=== PATIENT | male | born 1955 ===

== ENCOUNTER 2024-01-14 10:18 | Outpatient (AMB) | payer MEDICARE, SELFPAY ==
--- NOTE | 2024-01-14 10:32 | MHC.OFFVIS ---
Vital Signs 01/14/24 10:40 Height 5 ft 6 in Weight 190 lb 2 oz BMI 30.7 BP 157/87 H Blood Pressure Location Lt brachial Position Sitting Pulse 68 Intake Visit Reasons: Right inguinal hernia Intake Note: Patient is seen in office for evaluation and treatment of a right inguinal hernia. Pt c/o: onset one year, has increase in size, painful when coughing or sneezing, denies any other concerns Vegetable Loader Required: No Accompanied by: Self / Same As Patient Allergies acetaminophen [From Tylox] Allergy (Mild, Verified 01/14/24 10:38) Dizziness oxycodone [From Tylox] Allergy (Mild, Verified 01/14/24 10:38) Dizziness Medication List - Last Reconciled 01/14/24 by Thor Marin MD omeprazole 20 mg PO DAILY HPI Comments Details: 68-year-old male patient presenting for evaluation of a right groin lump. He initially noted the lump 1 year ago but more recently after doing some heavy lifting around the house noted increased swelling and pain. The lump is now present most of the time and he needs to wear hernia truss to keep it reduced. He has a prior tobacco history (35 pack-year history) but quit in 2006. He was noted on a recent physical examination to have a right inguinal hernia and presents today to discuss a repair. He denies nausea, vomiting, fever or chills. His bowels have been normal without bleeding or constipation. He denies a previous history of hernias or hernia surgeries. [facility] Surgical History History of esophagogastroduodenoscopy (EGD) (2005) Hx of arthroscopy of right knee (2009) Hx of cystoscopy (2023) Hx of colonoscopy Social History Alcohol intake: current Alcohol intake frequency: holidays/special occasions only Patient Tobacco Use Status: Former Tobacco user Review of Systems Const All systems reviewed & are unremarkable except as noted in HPI and below Denies chills, Denies fever(s), Denies headache(s), Denies poor appetite and Denies weakness ENT Denies headache(s) Card Denies chest pain, Denies irregular heart rhythm, Denies palpitations and Denies dyspnea Resp Denies cough, Denies excessive phlegm production and Denies dyspnea GI Reports abdominal pain, Denies bloating, Denies change in bowel habits, Denies constipation, Denies heartburn, Denies diarrhea, Denies nausea and Denies vomiting Denies difficulty urinating and Denies urinary frequency Musc Denies back pain, Denies muscle weakness and Denies numbness Skin/Breast Denies changing lesions and Denies unusual bruising Neuro Denies headache(s), Denies numbness, Denies paresthesias and Denies weakness Psych Denies anxiety and Denies depression Endo Denies palpitations [place]/Lymph Denies lymphadenopathy Physical Exam Vital Signs: Last Vital Signs Pulse 68 01/14/24 10:40 BP 157/87 H 01/14/24 10:40 BMI result Body Mass Index 30.7 Const General: cooperative and no acute distress Nutritional Appearance: well nourished Orientation/consciousness: patient oriented x3 Limitations: no limitations HEENT Head: Yes normocephalic and Yes atraumatic Ears: hearing grossly normal bilaterally Resp Effort & Inspection: normal respiratory effort, no audible wheezes, no cough and no respiratory distress Cardio Jugular venous distension: no JVD GI Other: Moderate size right inguinal hernia which increases with Valsalva maneuvers but reduces with light pressure. No hernia noted on the left side. Inspection: Yes normal to inspection Palpation (GI): Soft to palpation, nontender, no guarding and not rigid Skin Other: Warm, dry, no rash Neuro General: patient oriented x3 Extrem General: Yes no clubbing, cyanosis or edema Assessment & Plan Assessment & Plan (1) Reducible right inguinal hernia: Code(s): K40.90 - Unilateral inguinal hernia, without obstruction or gangrene, not specified as recurrent Category: Medical Plan 68-year-old male patient presenting with a palpable lump in the right groin which has increased in size and symptoms over the past year. On examination he does indeed have a reducible right inguinal hernia which increases in size with Valsalva maneuvers. No left inguinal hernias identified. We discussed repair of this right inguinal hernia including the risks, benefits and alternatives. He consents to repair of the right inguinal hernia with mesh and will be scheduled as a short-stay surgery at his earliest convenience. Coding Level of Care Code New Pt Level 4 (90329) Diagnoses Reducible right inguinal hernia K40.90
[2024-01-14 10:40] VITALS: BP 157/87; PULSE 68; BMI 30.7
== END 2024-01-14 12:06 | disposition home or self-care (01) ==
PROVIDERS: PCP Physician Assistant Medical; Visit Provider Surgery
DX: K40.90 Unilateral inguinal hernia, without obstruction or gangrene, not specified as recurrent (principal)
CPT/HCPCS: 99204

== ENCOUNTER → 2024-01-14 10:18 | Outpatient (BNVA) | payer MEDICARE, SELFPAY | PROVIDERS: PCP Physician Assistant Medical; Visit Provider Surgery | DX: K40.90 Unilateral inguinal hernia, without obstruction or gangrene, not specified as recurrent (principal) | CPT/HCPCS: 99202 ==

== ENCOUNTER → 2024-01-22 13:59 | Outpatient (BNV) | payer MEDICARE, SELFPAY | PROVIDERS: PCP Physician Assistant Medical; Visit Provider Internal Medicine | DX: R00.1 Bradycardia, unspecified (principal) | CPT/HCPCS: 93010 ==

== ENCOUNTER 2024-01-26 12:33 | Outpatient (AMB) | payer MEDICARE, SELFPAY ==
--- NOTE | 2024-01-26 12:44 | A.OFFVIS_ITS ---
Intake Visit Reasons: poss fungul infection groin Intake Note: This patient presents for question possible fungal infection of the groin. Patient c/o; reports he is on Amoxicillin for his tooth and his does not know if this rash is a reaction to the abx. 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 He was advised to return to the office at his PAT appointment yesterday. [facility] Medical History Arthritis Back pain Nocturia Asthma GERD (gastroesophageal reflux disease) Hypertrophy of prostate without urinary obstruction Osteoarthritis History of tobacco use Impaired fasting glucose Elevated blood pressure reading Surgical History History of vasectomy History of esophagogastroduodenoscopy (EGD) (2005) Hx of arthroscopy of right knee (2009) Hx of cystoscopy (2023) Hx of colonoscopy Social History Are you a primary child care to a significant other at home: No Do you presently have visiting nurse or other home services: No Alcohol intake: current Alcohol intake frequency: holidays/special occasions only Patient Tobacco Use Status: Former Tobacco user Physical Exam Const General: healthy appearing GI Other: Soft, nondistended, nontender, palpable right inguinal hernia. No rash identified at this time. Skin Other: Warm, dry, no rash Assessment & Plan Assessment & Plan (1) Reducible right inguinal hernia: Code(s): K40.90 - Unilateral inguinal hernia, without obstruction or gangrene, not specified as recurrent Category: Medical Plan Asked to see patient regarding a rash in the groin for which he is using an antifungal cream. Examination today reveals no rash. He may proceed with surge ry as scheduled. Coding Level of Care Code Est Pt Level 3 (91485) Diagnoses Reducible right inguinal hernia K40.90
== END 2024-01-26 12:58 | disposition home or self-care (01) ==
PROVIDERS: PCP Physician Assistant Medical; Visit Provider Surgery
DX: K40.90 Unilateral inguinal hernia, without obstruction or gangrene, not specified as recurrent (principal)
CPT/HCPCS: 99024

== ENCOUNTER → 2024-01-26 12:33 | Outpatient (BNVA) | payer MEDICARE, SELFPAY | PROVIDERS: PCP Physician Assistant Medical; Visit Provider Surgery | DX: K40.90 Unilateral inguinal hernia, without obstruction or gangrene, not specified as recurrent (principal); B35.6 Tinea cruris | CPT/HCPCS: 99212 ==

== ENCOUNTER 2024-01-27 08:24 | Day surgery (SDC) | payer MEDICARE, SELFPAY ==
--- NOTE | 2024-01-22 | ECG_ITS ---
Test Reason : preop Blood Pressure : / mmHG Vent. Rate : 051 BPM Atrial Rate : 051 BPM P-R Int : 148 ms QRS Dur : 084 ms QT Int : 436 ms P-R-T Axes : -09 045 028 degrees QTc Int : 401 ms Sinus bradycardia Otherwise normal ECG No previous ECGs available Referred By: Yolanda Silverman Electronically Signed By:HILDA CORONA
[2024-01-22 13:17] VITALS: BP 180/91; PULSE 63; RESP 16; O2SAT 97; BMI 30.5
--- NOTE | 2024-01-22 13:37 | HO.ANESPROP2 ---
Documented by User: Yolanda Silverman NP 01/25/24 13:09 HPI - Anesthesia Eval Consult details Narrative: 68yo M for?Right Hernia Inguinal Reducible with mesh Bilateral groin fungal infection. Treating with OTC fungal cream. Dr Soto alerted. Wants to see in office preop. Jovan RN notifiied of need for preop appointment with Dr Fairchild No recent illness No CP/SOB with yard work, golf regularly BP up at PAT. Readings at Gen Surg lower and PCP 11/2023 WNL. Reports increased anxiety r/t to surgery. Will monitor at home and bring log DOS GERD: controlled with ppi Asthma: dx'd years ago, no rescue inhaler needed for many years PMFSH Active Problems Active Problems: All Active Problems Reducible right inguinal hernia (Acute) Past Medical History Medical History Arthritis Back pain Nocturia Asthma GERD (gastroesophageal reflux disease) Hypertrophy of prostate without urinary obstruction Osteoarthritis History of tobacco use Impaired fasting glucose Elevated blood pressure reading Family History Family history of problems with anesthesia: No Surgical History Surgical History History of vasectomy History of esophagogastroduodenoscopy (EGD) (2005) Hx of arthroscopy of right knee (2009) Hx of cystoscopy (2023) Hx of colonoscopy History of Problems with Anesthesia: No Social History Social History Are you a primary manager intensive care unit to a significant other at home: No Do you presently have visiting nurse or other home services: No Alcohol intake: current Alcohol intake frequency: holidays/special occasions only Patient Tobacco Use Status: Former Tobacco user Use of substances other than those prescribed or required for medical reasons: Yes Substance Use Frequency: Monthly Have you been hit, kicked, punched, or otherwise hurt by someone within the past year? If so, by whom?: No Are you DNR?: No Advance Directives: No Advance Directives Information Provided: Yes Advance Directives on File: No Recently lost weight without trying: No Eating poorly because of decreased appetite: No Nutrition Risks: No Nutritional Risk Poor oral hygiene: Yes (crowns, permanent bridge. pt needs a root canal) Meds Allergies Allergy/AdvReac Type Severity Reaction Status Date / Time acetaminophen [From Tylox] Allergy Mild Dizziness Verified 01/26/24 12:53 oxycodone [From Tylox] Allergy Mild Dizziness Verified 01/26/24 12:53 Home Medications ?Medication ?Instructions ?Recorded ?Confirmed ?Last Taken ?Type omeprazole 20 mg capsule,delayed 20 mg PO DAILY 01/14/24 01/21/24 01/27/24 History release melatonin 3 mg tablet 3 mg PO BEDTIME PRN Insomnia 01/21/24 01/21/24 Unknown History turmeric 400 mg capsule 400 mg PO DAILY 01/21/24 01/22/24 Unknown History diclofenac sodium 1 % topical gel 2 g topical QID PRN Pain 01/22/24 01/22/24 Unknown History (Voltaren Arthritis Pain) milk thistle seed extract 200 mg 200 mg PO DAILY 01/22/24 01/22/24 Unknown History capsule tyrosine 1 ea PO DAILY 01/22/24 01/22/24 Unknown History vit C-Tp-Rp-Cn-wunepk-lqo palm 2 cap PO DAILY 01/22/24 01/22/24 Unknown History capsule zinc 01/22/24 01/22/24 Unknown History amoxicillin 875 mg tablet 875 mg PO BID 01/26/24 Unknown History Exam Height,Weight and Vital Signs: Height 5 ft 6 in Weight 85.729 kg Last Vital Signs Pulse 63 01/22/24 13:17 Resp 16 01/22/24 13:17 BP 180/91 H 01/22/24 13:17 Pulse Ox 97 01/22/24 13:17 O2 Del Method Room Air 01/22/24 13:17 Airway Mallampati Class: III TM Dist: >3cm Neck ROM: Full Loose/Missing/Broken Teeth: No (Right lower permanent, crowns molars,) Heart: RRR Lungs: CTAB Assessment and Plan Assessment Anesthesia Assessment: Anesthesia Plan Discussed and PAT Visit Final Anesthetic Review Family History of Problems with Anesthesia: No History of Problems with Anesthesia: No Documented by User: Robert Wylie MD 01/27/24 10:06 [facility] Past Medical History Medical History Arthritis Back pain Nocturia Asthma GERD (gastroesophageal reflux disease) Hypertrophy of prostate without urinary obstruction Osteoarthritis History of tobacco use Impaired fasting glucose Elevated blood pressure reading Surgical History Surgical History History of vasectomy History of esophagogastroduodenoscopy (EGD) (2005) Hx of arthroscopy of right knee (2009) Hx of cystoscopy (2023) Hx of colonoscopy Social History Social History Are you a primary manager intensive care unit to a significant other at home: No Do you presently have visiting nurse or other home services: No Alcohol intake: current Alcohol intake frequency: holidays/special occasions only Patient Tobacco Use Status: Former Tobacco user Use of substances other than those prescribed or required for medical reasons: Yes Substance Use Frequency: Monthly Have you been hit, kicked, punched, or otherwise hurt by someone within the past year? If so, by whom?: No Are you DNR?: No Advance Directives: No Advance Directives Information Provided: Yes Advance Directives on File: No Recently lost weight without trying: No Eating poorly because of decreased appetite: No Nutrition Risks: No Nutritional Risk Poor oral hygiene: Yes (crowns, permanent bridge. pt needs a root canal) Meds Allergies Allergy/AdvReac Type Severity Reaction Status Date / Time acetaminophen [From Tylox] Allergy Mild Dizziness Verified 01/26/24 12:53 oxycodone [From Tylox] Allergy Mild Dizziness Verified 01/26/24 12:53 Home Medications ?Medication ?Instructions ?Recorded ?Confirmed ?Last Taken ?Type omeprazole 20 mg capsule,delayed 20 mg PO DAILY 01/14/24 01/21/24 01/27/24 History release melatonin 3 mg tablet 3 mg PO BEDTIME PRN Insomnia 01/21/24 01/21/24 Unknown History turmeric 400 mg capsule 400 mg PO DAILY 01/21/24 01/22/24 Unknown History diclofenac sodium 1 % topical gel 2 g topical QID PRN Pain 01/22/24 01/22/24 Unknown History (Voltaren Arthritis Pain) milk thistle seed extract 200 mg 200 mg PO DAILY 01/22/24 01/22/24 Unknown History capsule tyrosine 1 ea PO DAILY 01/22/24 01/22/24 Unknown History vit K-Nv-Zo-Lu-fojdpm-iug palm 2 cap PO DAILY 01/22/24 01/22/24 Unknown History capsule zinc 01/22/24 01/22/24 Unknown History amoxicillin 875 mg tablet 875 mg PO BID 01/26/24 Unknown History Exam Airway Mallampati Class: II Assessment and Plan Final Anesthetic Review ASA Class: II Final Preanesthetic Review: No Changes in Pt Med Stat, Meds/Allgs Chart Reviewed, Consent Obtained/Reviewed and Anes Risks/Benef Reviewed Patient Risk: Intermediate Procedure Risk: Intermediate Anesthetic Plan Anesthetic Plan: GA Disposition: Standard PACU
[2024-01-22 14:55] LABS: Hematocrit 49.3 % (42.0-52.0); Mean Corpuscular HGB Conc 36.5 g/dl (31.0-36.0); Mean Corpuscular Hemoglobin 31.9 pg (27.0-33.0); Mean Corpuscular Volume 87.4 fL (80.0-98.0); Mean Platelet Volume 9.9 fL (9.4-12.4); Platelet Count 211 X10*3/uL (160-400); Red Blood Count 5.64 X10*6/uL (4.60-5.80); Red Cell Distribution Width 12.4 % (11.0-16.0); White Blood Count 9.3 X10*3/uL (4.8-10.8)
[2024-01-22 15:36] LABS: Anion Gap 10 (12-20); Blood Urea Nitrogen 17 mg/dL (9-16); Calcium 9.6 mg/dL (8.4-10.2); Carbon Dioxide 30 mmol/L (22-29); Chloride 104 mmol/L (96-108); Estimated Glomerular Filt Rate > 60; Glucose Random 89 mg/dL (60-115); Potassium 4.2 mmol/L (3.3-5.1); Sodium 140 mmol/L (135-145)
[2024-01-27] VITALS (10 sets, daily range): BP systolic 110–144; BP diastolic 72–93; PULSE 49–62; RESP 16–18; TEMP 36.1–36.9; O2SAT 96–100
[2024-01-27] MEDS: Lactated Ringers 1,000 ML 100 ML IVCONT (08:48)
--- NOTE | 2024-01-27 10:21 | MHC.SHP ---
Pre-Procedural Eval Section A - 24 Hr Update-Section A only Date of Service: 01/27/24 The patient is an INPATIENT: No Changes since office visit: Yes Patient answered all questions; No Cold of Flu in the past 2 weeks, No New Medical Problems and No Changes in Medication The patient has been examined within 24 hours of the surgical procedure. The History & Physical has been completed within 30 days and I have reviewed it.: Yes Section B - Complete if H&P > 30 days Chief Complaint: Unilateral inguinal hernia, without obstruction or Allergies: Allergies Allergy/AdvReac Type Severity Reaction Status Date / Time acetaminophen [From Tylox] Allergy Mild Dizziness Verified 01/26/24 12:53 oxycodone [From Tylox] Allergy Mild Dizziness Verified 01/26/24 12:53 Plan Diagnosis/Plan: Unchanged I have reviewed the history and physical and performed a pertinent physical examination on my patient. No changes have occurred unless specified. Time Spent With Patient Time: Total time managing care of this patient today ____ minutes.
--- NOTE | 2024-01-27 11:31 | P.OP_ITS ---
Operative Note Operative Note Date of Service: 01/27/24 Narrative: Preoperative diagnosis: Right inguinal hernia, reducible Postoperative diagnosis: Same Procedure: Repair of right inguinal hernia, reducible with mesh Surgeon: Thor Marin MD Audiology Technician: None Anesthesia: General LMA Indications for procedure: 68-year-old male patient presenting with a gradually enlarging right inguinal hernia now causing some discomfort. Operative findings: Reducible indirect right inguinal hernia Specimen: None Estimated blood loss: Less than 2 mL Complications: None Procedure details: Patient was brought to the OR and placed in a supine position. After administering general anesthesia the patient's abdomen was prepped with ChloraPrep and draped in a sterile fashion. A surgical time-out was called the consent confirmed. Patient received preoperative antibiotics and Venodyne boots were in place. Local anesthesia was then infiltrated along the right inguinal ligament. Incision was then made with a scalpel carried out through subcutaneous tissue, past Alex's fashion up to the external oblique aponeurosis. This was then incised with a scalpel and widened with the Metzenbaum scissors. The spermatic cord was then dissected free from the surrounding inguinal canal. This was retracted then with a Maikel drain. The floor of the inguinal canal was found to be intact without any hernia. Fibers of the cremasteric muscle were and a moderate size indirect hernia was identified. This was dissected down into past the internal ring. This was then reduced into the abdominal cavity. A preperitoneal space was then dissected using an open Ray-Harjeet sponge through the internal ring. A large extended PHS mesh was then obtained. The circular underlay was then deployed within the preperitoneal space. The overlay was then secured to the pubic tubercle, conjoined tendon, and shelving edge of the inguinal ligament using 0 Polysorb suture. A slit was made in the mesh in the mesh wrapped around the spermatic cord at the internal ring. This was then secured to the shelving edge using the 0 Polysorb suture. The remainder of the mesh was placed below the external oblique aponeurosis laterally. Wounds were then irrigated with saline solution and suctioned dry. Wounds were checked for hemostasis. External oblique aponeurosis was then reapproximated using a running 2-0 Polysorb suture. Approximately 6 mL of Zenrelef was then instilled below the external oblique aponeurosis. Alex's fascia and dermis were then reapproximated using interrupted 3-0 Polysorb sutures. Skin was closed using a running subcuticular 4-0 Polysorb suture. Steri-Strips, 2 x 2 gauze and Tegaderm were then applied. The patient tolerated the procedure well. Sponge, instrument, needle counts reported as correct. The patient was transferred to the PACU in stable condition.
== END 2024-01-27 13:40 | disposition home or self-care (01) ==
PROVIDERS: Nurse Practitioner; PCP Physician Assistant Medical; Visit Provider Surgery
PROC: (CPT 49505; principal; 2024-01-27 10:20)
DX: K40.90 Unilateral inguinal hernia, without obstruction or gangrene, not specified as recurrent (principal); Z88.5 Allergy status to narcotic agent
CPT/HCPCS: 49505; 36415; 80048; 85027; 93005; C1781; C9088; J0131; J0690; J2250; J2704; J2795; J3010

== ENCOUNTER → 2024-01-27 08:24 | Outpatient (BNV) | payer MEDICARE, SELFPAY | PROVIDERS: PCP Physician Assistant Medical; Visit Provider Surgery | DX: K40.90 Unilateral inguinal hernia, without obstruction or gangrene, not specified as recurrent (principal) | CPT/HCPCS: 49505 ==

== ENCOUNTER 2024-02-09 10:15 | Outpatient (AMB) | payer MEDICARE, SELFPAY ==
--- NOTE | 2024-02-09 10:22 | A.OFFVIS_ITS ---
Vital Signs 02/09/24 10:28 Height 5 ft 6 in Weight 188 lb 8 oz BMI 30.4 BP 153/84 H Blood Pressure Location Lt brachial Position Sitting Pulse 69 Intake Visit Reasons: S/P RIH w/mesh Intake Note: Patient is seen in office for post op assessment post right inguinal hernia repair. Pt c/o: denies any concerns Op: 01/27/24 Delivery Merchandiser Required: No Accompanied by: Spouse Allergies acetaminophen [From Tylox] Allergy (Mild, Verified 01/26/24 12:53) Dizziness codeine Allergy (Mild, Verified 02/09/24 10:28) sweats oxycodone [From Tylox] Allergy (Mild, Verified 01/26/24 12:53) Dizziness Medication List - Last Reconciled 02/09/24 by Thor Marin MD amoxicillin 875 mg PO BID diclofenac sodium 1% (Voltaren Arthritis Pain) 2 grams topical QID PRN melatonin 3 mg PO BEDTIME PRN milk thistle seed extract 200 mg PO DAILY omeprazole 20 mg PO DAILY turmeric 400 mg PO DAILY tyrosine 1 ea PO DAILY vit P-Dm-Ip-Up-ljahfm-yxf palm 2 caps PO DAILY [zinc ] HPI Comments Details: 68-year-old male patient returning 1 week following repair of a right inguinal hernia with mesh. He tolerated the procedure well and denies any ongoing symptoms. He denies fever, chills, nausea or vomiting. He did have some swelling which has now resolved. [facility] Medical History Arthritis Back pain Nocturia Asthma GERD (gastroesophageal reflux disease) Hypertrophy of prostate without urinary obstruction Osteoarthritis History of tobacco use Impaired fasting glucose Elevated blood pressure reading Surgical History (Updated 02/08/24 @ 10:14 by FARIDEH Denny) H/O right inguinal hernia repair (01/27/24) History of vasectomy History of esophagogastroduodenoscopy (EGD) (2005) Hx of arthroscopy of right knee (2009) Hx of cystoscopy (2023) Hx of colonoscopy Social History Are you a primary cna caregiver to a significant other at home: No Do you presently have visiting nurse or other home services: No Alcohol intake: current Alcohol intake frequency: holidays/special occasions only Patient Tobacco Use Status: Former Tobacco user Physical Exam Const General: no acute distress Nutritional Appearance: well nourished Orientation/consciousness: patient oriented x3 Resp Effort & Inspection: normal respiratory effort GI Other: Incision in right groin is clean, dry, and intact without redness or discharge. No hernias noted with Valsalva maneuvers. No evidence of wound infection. Neuro General: patient oriented x3 Extrem General: Yes normal to inspection Assessment & Plan Assessment & Plan (1) Reducible right inguinal hernia: Code(s): K40.90 - Unilateral inguinal hernia, without obstruction or gangrene, not specified as recurrent Category: Medical Plan Patient returns 1 week following right inguinal hernia repair with mesh. His wounds are clean, dry, and intact and healing well. No evidence of hernia recurrence. Should continue to avoid lifting greater than 10 lb and return in 1 month for follow-up examination. Coding Level of Care Code Global (90292) Diagnoses Reducible right inguinal hernia K40.90
[2024-02-09 10:28] VITALS: BP 153/84; PULSE 69; BMI 30.4
== END 2024-02-09 10:33 | disposition home or self-care (01) ==
PROVIDERS: PCP Physician Assistant Medical; Visit Provider Surgery
DX: K40.90 Unilateral inguinal hernia, without obstruction or gangrene, not specified as recurrent (principal)
CPT/HCPCS: 99024

== ENCOUNTER → 2024-02-09 10:15 | Outpatient (BNVA) | payer MEDICARE, SELFPAY | PROVIDERS: PCP Physician Assistant Medical; Visit Provider Surgery | DX: Z48.815 Encounter for surgical aftercare following surgery on the digestive system (principal) | CPT/HCPCS: 99212 ==

== ENCOUNTER 2024-03-15 09:49 | Outpatient (AMB) | payer MEDICARE, SELFPAY ==
--- NOTE | 2024-03-15 10:11 | A.OFFVIS_ITS ---
Vital Signs 03/15/24 10:13 Height 5 ft 6 in Weight 187 lb 6.287 oz BMI 30.2 Pulse 62 Intake Visit Reasons: 1 mth follow up s/p RIH w/mesh Intake Note: Patient is seen in office for one month follow up visit, post right inguinal hernia repair. Patient c/o: denies any concerns regarding Inbound Customer Service Representative Required: No Accompanied by: Self / Same As Patient Allergies acetaminophen [From Tylox] Allergy (Mild, Verified 03/15/24 10:12) Dizziness codeine Allergy (Mild, Verified 03/15/24 10:12) sweats oxycodone [From Tylox] Allergy (Mild, Verified 03/15/24 10:12) Dizziness Medication List - Last Reconciled 03/15/24 by Thor Marin MD amoxicillin 875 mg PO BID diclofenac sodium 1% (Voltaren Arthritis Pain) 2 grams topical QID PRN melatonin 3 mg PO BEDTIME PRN milk thistle seed extract 200 mg PO DAILY omeprazole 20 mg PO DAILY turmeric 400 mg PO DAILY tyrosine 1 ea PO DAILY vit R-Kp-Vy-Dm-zpexiy-jbz palm 2 caps PO DAILY [zinc ] HPI Comments Details: 68-year-old male patient returning 1 month following repair of a right inguinal hernia with mesh. He tolerated the procedure well and denies any ongoing symptoms. He denies fever, chills, nausea or vomiting. He did have some swelling which has now resolved. COUNT INCLUDES [facility] Medical History Arthritis Back pain Nocturia Asthma GERD (gastroesophageal reflux disease) Hypertrophy of prostate without urinary obstruction Osteoarthritis History of tobacco use Impaired fasting glucose Elevated blood pressure reading Surgical History H/O right inguinal hernia repair (01/27/24) History of vasectomy History of esophagogastroduodenoscopy (EGD) (2005) Hx of arthroscopy of right knee (2009) Hx of cystoscopy (2023) Hx of colonoscopy Social History Are you a primary child care supervisor to a significant other at home: No Do you presently have visiting nurse or other home services: No Alcohol intake: current Alcohol intake frequency: holidays/special occasions only Patient Tobacco Use Status: Former Tobacco user Physical Exam Vital Signs: Last Vital Signs Pulse 62 03/15/24 10:13 BMI result Body Mass Index 30.2 Const General: no acute distress Nutritional Appearance: well nourished Orientation/consciousness: patient oriented x3 Resp Effort & Inspection: normal respiratory effort GI Other: Incision in right groin is clean, dry, and intact without redness or discharge. No hernias noted with Valsalva maneuvers. No evidence of wound infection. Neuro General: patient oriented x3 Extrem General: Yes normal to inspection Assessment & Plan Assessment & Plan (1) Reducible right inguinal hernia: Code(s): K40.90 - Unilateral inguinal hernia, without obstruction or gangrene, not specified as recurrent Category: Medical Plan Patient returns 1 month following right inguinal hernia repair with mesh. His wounds are clean, dry, and intact and healing well. There is no evidence evidence of a hernia recurrence. He may resume normal activity without restrictions and should follow up as needed. Coding Level of Care Code Global (91637) Diagnoses Reducible right inguinal hernia K40.90
[2024-03-15 10:13] VITALS: PULSE 62; BMI 30.2
== END 2024-03-15 10:16 | disposition home or self-care (01) ==
PROVIDERS: PCP Physician Assistant Medical; Visit Provider Surgery
DX: K40.90 Unilateral inguinal hernia, without obstruction or gangrene, not specified as recurrent (principal)
CPT/HCPCS: 99024

== ENCOUNTER → 2024-03-15 09:49 | Outpatient (BNVA) | payer MEDICARE, SELFPAY | PROVIDERS: PCP Physician Assistant Medical; Visit Provider Surgery | DX: Z09 Encounter for follow-up examination after completed treatment for conditions other than malignant neoplasm (principal); Z87.19 Personal history of other diseases of the digestive system | CPT/HCPCS: 99212 ==